=== PATIENT | female | born 1990 | race Two or more races ===

== ENCOUNTER 2018-06-09 18:29 | Inpatient (IN) | payer OTHER ==
[~2018-06-09] VITALS: Ht 162.6 cm; Wt 174.0 kg
[2018-06-09] MEDS ORDERED: PRENATAL TABLE1 EAC1 PO (19:33)
[2018-06-15] MEDS ORDERED: SURFAK240 M1 PO (12:29)
[2018-06-15] MEDS ORDERED: APRESOLINE 10MG10 MG PO (12:29)
[2018-06-15] MEDS ORDERED: PERCOCET 5-3251 EACH PO (12:29)
[2018-06-15] MEDS ORDERED: LABETALOL HCL200 MG PO (12:29)
== END 2018-06-15 14:40 | disposition home or self-care (01) | DRG 786 ==
LOC: LDR 18:29 → OB/GYN 18:29
PROVIDERS: Obstetrics & Gynecology
PROC: 4A1HXCZ Monitoring of Products of Conception, Cardiac Rate, External Approach (ICD-10-PCS; 2018-06-09)
PROC: 4A033R1 Measurement of Arterial Saturation, Peripheral, Percutaneous Approach (ICD-10-PCS; 2018-06-11)
PROC: 10D00Z1 Extraction of Products of Conception, Low, Open Approach (ICD-10-PCS; principal; 2018-06-11 15:00)
DX: O36.5930 Maternal care for other known or suspected poor fetal growth, third trimester, not applicable or unspecified (principal); O11.3 Pre-existing hypertension with pre-eclampsia, third trimester; O60.14X0 Preterm labor third trimester with preterm delivery third trimester, not applicable or unspecified; O76 Abnormality in fetal heart rate and rhythm complicating labor and delivery; Z3A.34 34 weeks gestation of pregnancy; Z37.0 Single live birth

== ENCOUNTER 2022-05-29 12:28 | Emergency (ER) | payer OTHER ==
[~2022-05-29] VITALS: Ht 160 cm; Wt 59.0 kg
[~2022-05-29 12:28] MED LIST: APRESOLINE 10MG10 MG PO; LABETALOL HCL200 MG PO; PERCOCET 5-3251 EACH PO; PRENATAL TABLE1 EAC1 PO; SURFAK240 M1 PO
[2022-05-29] MEDS ORDERED: BENZONATATE200 M1 PO (17:21)
[2022-05-29] MEDS ORDERED: ZITHROMAX500 MG PO (17:21)
== END 2022-05-29 17:25 | disposition home or self-care (01) ==
LOC: ER 12:28
DX: J20.9 Acute bronchitis, unspecified (principal); Z20.822 Contact with and (suspected) exposure to COVID-19

== ENCOUNTER 2022-10-12 08:24 | Emergency (ER) | payer OTHER ==
[~2022-10-12] VITALS: Ht 162.6 cm; Wt 59.0 kg
[~2022-10-12 08:24] MED LIST changes: +BENZONATATE200 M1 PO; +ZITHROMAX500 MG PO
== END 2022-10-12 12:45 | disposition home or self-care (01) ==
LOC: ER 08:24
DX: B34.9 Viral infection, unspecified (principal); Z20.822 Contact with and (suspected) exposure to COVID-19; Z87.09 Personal history of other diseases of the respiratory system